=== PATIENT | female | born 1965 | race Caucasian/White ===

== ENCOUNTER 2017-03-03 11:25 | Emergency (ER) | payer OTHER ==
[~2017-03-03] VITALS: Ht 165.1 cm; Wt 49.9 kg
--- NOTE | 2017-03-03 11:45 | NUR ---
PT WAS EVALUATED BY DR WONG. PT WAS D/C TO HOME. D/C INSTRUCTIONS GIVEN TO THE PT.
[2017-03-03 11:48] VITALS: BP 123/73
== END 2017-03-03 11:49 | disposition home or self-care (01) ==
LOC: ER 11:25
DX: L50.9 Urticaria, unspecified (principal); Z88.0 Allergy status to penicillin; Z88.8 Allergy status to other drugs, medicaments and biological substances
CPT/HCPCS: 99283; A4663